=== PATIENT | male | born 1930 | race Caucasian/White ===

== ENCOUNTER 2017-08-03 09:32 | Emergency (ER) | payer MEDICARE, BC ==
[~2017-08-03] VITALS: Ht 177.8 cm; Wt 72.6 kg
[~2017-08-03 09:32] MED LIST: COENZYME Q PO; COQ-1030 MG PO; MULTIVITAMINS1 EAC7 PO; PERCOCET 7.5-31 EACH PO; ZOCOR40 MG PO
== END 2017-08-03 09:49 | disposition home or self-care (01) ==
LOC: ED 09:32
DX: S61.012A Laceration without foreign body of left thumb without damage to nail, initial encounter (principal); S80.211A Abrasion, right knee, initial encounter; W45.8XXA Other foreign body or object entering through skin, initial encounter; W19.XXXA Unspecified fall, initial encounter

== ENCOUNTER 2018-04-12 10:53 | Emergency (ER) | payer MEDICARE, BC ==
[~2018-04-12] VITALS: Ht 177.8 cm; Wt 72.6 kg
== END 2018-04-12 13:08 | disposition home or self-care (01) ==
LOC: ED 10:53
DX: R04.0 Epistaxis (principal); E78.5 Hyperlipidemia, unspecified; Z88.0 Allergy status to penicillin; Z88.2 Allergy status to sulfonamides; Z88.8 Allergy status to other drugs, medicaments and biological substances; Z79.52 Long term (current) use of systemic steroids; Z79.899 Other long term (current) drug therapy
CPT/HCPCS: 85025; 85610; 85730; 99283